=== PATIENT | male | born 1955 | race Caucasian/White ===

== ENCOUNTER 2018-06-29 13:20 | Emergency (ER) | payer OTHER ==
[~2018-06-29] VITALS: Ht 172.1 cm; Wt 74.8 kg
[2018-06-29] MEDS ORDERED: methylPREDNISolone SOD SUCC PF 125 MG/2 ML VIAL. IV ONE (14:00)
[2018-06-29] MEDS ORDERED: cefTRIAXone IV Push 1 GM VIAL. IVP ONE (14:00)
[2018-06-29 14:39] LABS: BASO # 0.1 x10^3/uL (0.0-0.2); BASO % 1 % (0-3); EOS # 0.8 x10^3/uL (0.0-0.7); EOS % 6 % (0-3); HEMOGLOBIN 14.7 g/dL (13.0-17.5); LYMPH # 1.9 x10^3/uL (1.0-4.8); LYMPH % 13 % (24-48); MEAN CORPUSCULAR HEMOGLOBIN 32 pg (25-35); MEAN CORPUSCULAR HGB CONC 34 g/dL (31-37); MEAN CORPUSCULAR VOLUME 92 fL (79-100); MONO # 1.3 x10^3/uL (0.0-1.1); MONO % 9 % (0-9); NEUT # 10.8 x10^3uL (1.8-7.7); NEUT % 72 % (31-73); PLATELET COUNT 314 x10^3/uL (140-400); RED BLOOD COUNT 4.66 x10^6/uL (4.30-5.70)
[2018-06-29 15:00] LABS: CALCIUM 9.6 mg/dL (8.5-10.1); CREATININE 0.8 mg/dL (0.7-1.3); GFR 97.6; POTASSIUM 5.3 mmol/L (3.5-5.1)
[2018-06-29 15:04] VITALS: BP 153/91
[2018-06-29 15:12] LABS: ALBUMIN 3.7 g/dL (3.4-5.0); ALBUMIN/GLOBULIN RATIO 0.9 (1.0-1.7); TOTAL BILIRUBIN 0.4 mg/dL (0.2-1.0); TOTAL PROTEIN 7.9 g/dL (6.4-8.2)
[2018-06-29] MEDS ORDERED: IOHEXOL 300 MG/ML 100ML VIAL. IV ONE (15:45)
[2018-06-29] MEDS ORDERED: CONTRAST GIVEN. MC PRN (15:45)
--- NOTE | 2018-06-29 16:32 | RAD ---
Examination: CT soft tissue neck with IV contrast HISTORY: History of shortness of breath, cough, swollen uvula COMPARISON: None available Technique: Axial CT images of the soft tissue neck were performed with IV contrast. Coronal and sagittal reformats are performed Exposure: One or more of the following individualized dose reduction techniques were utilized for this examination: 1. Automated exposure control 2. Adjustment of the mA and/or kV according to patient size 3. Use of iterative reconstruction technique. Findings: The visualized parotid glands, masticators spaces grossly appears unremarkable. There is mild prominent appearing uvula. No evidence of enlargement of the tonsils identified. The visualized vallecula, perform sinuses grossly appears unremarkable. The visualized thyroid gland grossly appears unremarkable. No radiologically significant cervical lymphadenopathy is identified. Severe lung emphysematous changes. Mild degenerative changes cervical spine. Mild mucosal thickening left maxillary sinus. IMPRESSION: 1. Mild enlarged appearing uvula, nonspecific. No evidence of tonsillar enlargement. 2. Severe lung emphysematous changes. Electronically signed by: Valeriy Obando MD (06/29/2018 4:28 PM) [facility]
[2018-06-29] MEDS ORDERED: METH4TAB2 PO (16:43)
[2018-06-29] MEDS ORDERED: AZIT250T PO (16:43)
--- NOTE | 2018-06-29 16:44 | PHYS DOC ---
Past Medical History Past Medical History: Arthritis, Asthma, GERD, High Cholesterol, Hypertension, Hepatitis, Other Additional Past Medical Histor: cervical neck pain Past Surgical History: Appendectomy, Tonsillectomy, Other Additional Past Surgical Histo: L wrist; Right leg; laproscopic of abd Alcohol Use: None Drug Use: None Adult General Chief Complaint Chief Complaint: OTHER COMPLAINTS HPI HPI Patient is a 63-year-old male who presents with complaint of swelling of his uvula, difficulty swallowing, sore throat and mild shortness of breath. Patient states that symptoms have been present and worsening over the course of the last week. Patient does not believe that he has been running a fever. He denies any nausea or vomiting. Patient indicates that there are no alleviating factors. Review of Systems Review of Systems Constitutional: Denies fever or chills [] HENT: Positive sore throat [] Respiratory: [place] of dry cough and shortness of breath [] Cardiovascular: No additional information not addressed in HPI [] Integument: Denies rash or skin lesions [] Neurologic: Denies headache, focal weakness or sensory changes [] All other systems were reviewed and found to be within normal limits, except as documented in this note. Current Medications Current Medications Current Medications Medications (Trade) Dose Ordered Sig/Jaime Start Time Stop Time Status Last Admin Dose Admin Ceftriaxone Sodium (Rocephin) 1 gm 1X ONCE 06/29/18 14:00 06/29/18 14:01 DC 06/29/18 14:56 1 GM Info (CONTRAST GIVEN -- Rx MONITORING) 1 each PRN DAILY PRN 06/29/18 15:45 06/29/18 16:55 DC Iohexol (Omnipaque 300 Mg/ml) 70 ml 1X ONCE 06/29/18 15:45 06/29/18 15:46 DC 06/29/18 15:41 70 ML Methylprednisolone Sodium Succinate (SOLU-Medrol 125MG VIAL) 125 mg 1X ONCE 06/29/18 14:00 06/29/18 14:01 DC 06/29/18 14:56 125 MG Allergies Allergies Allergies Coded Allergies Type Severity Reaction Last Updated Verified No Known Drug Allergies 06/29/18 No Physical Exam Physical Exam Constitutional: Well developed, well nourished, no acute distress, non-toxic appearance. [] HENT: Normocephalic, atraumatic, bilateral external ears normal, oropharynx moist, throat reveals pharyngeal erythema with tonsillar enlargement. There is swelling noted to the uvula but airway is widely patent. [] Eyes: PERRLA, EOMI, conjunctiva normal, no discharge. [] Neck: Normal range of motion, no tenderness, supple with anterior cervical lymphadenopathy. [] Cardiovascular: Regular rate and rhythm [] Lungs & Thorax: Bilateral breath sounds clear to auscultation [] Abdomen: Bowel sounds normal, soft, no tenderness. [] Skin: Warm, dry, no erythema, no rash. [] Extremities: No tenderness, no cyanosis, no clubbing, ROM intact, no edema. [] Neurologic: Alert and oriented X 3, no focal deficits noted. [] Current Patient Data Vital Signs Vital Signs Date Time Temp Pulse Resp B/P (MAP) Pulse Ox O2 Delivery O2 Flow Rate FiO2 06/29/18 15:04 90 153/91 (111) 93 Room Air 06/29/18 13:32 97.5 20 97.5 Lab Values Laboratory Tests Test 06/29/18 14:25 White Blood Count 15.0 x10^3/uL (4.0-11.0) H Red Blood Count 4.66 x10^6/uL (4.30-5.70) Hemoglobin 14.7 g/dL (13.0-17.5) Hematocrit 43.0 % (39.0-53.0) Mean Corpuscular Volume 92 fL (79-100) Mean Corpuscular Hemoglobin 32 pg (25-35) Mean Corpuscular Hemoglobin Concent 34 g/dL (31-37) Red Cell Distribution Width 13.0 % (11.5-14.5) Platelet Count 314 x10^3/uL (140-400) Neutrophils (%) (Auto) 72 % (31-73) Lymphocytes (%) (Auto) 13 % (24-48) L Monocytes (%) (Auto) 9 % (0-9) Eosinophils (%) (Auto) 6 % (0-3) H Basophils (%) (Auto) 1 % (0-3) Neutrophils # (Auto) 10.8 x10^3uL (1.8-7.7) H Lymphocytes # (Auto) 1.9 x10^3/uL (1.0-4.8) Monocytes # (Auto) 1.3 x10^3/uL (0.0-1.1) H Eosinophils # (Auto) 0.8 x10^3/uL (0.0-0.7) H Basophils # (Auto) 0.1 x10^3/uL (0.0-0.2) Sodium Level 138 mmol/L (136-145) Potassium Level 5.3 mmol/L (3.5-5.1) H Chloride Level 103 mmol/L (98-107) Carbon Dioxide Level 28 mmol/L (21-32) Anion Gap 7 (6-14) Blood Urea Nitrogen 15 mg/dL (8-26) Creatinine 0.8 mg/dL (0.7-1.3) Estimated GFR (Cockcroft-Gault) 97.6 BUN/Creatinine Ratio 19 (6-20) Glucose Level 81 mg/dL (70-99) Calcium Level 9.6 mg/dL (8.5-10.1) Total Bilirubin 0.4 mg/dL (0.2-1.0) Aspartate Amino Transferase (AST) 31 U/L (15-37) Alanine Aminotransferase (ALT) 26 U/L (16-63) Alkaline Phosphatase 74 U/L (46-116) Total Protein 7.9 g/dL (6.4-8.2) Albumin 3.7 g/dL (3.4-5.0) Albumin/Globulin Ratio 0.9 (1.0-1.7) L Laboratory Tests 06/29/18 14:25 Laboratory Tests 06/29/18 14:25 EKG EKG [] Radiology/Procedures Radiology/Procedures [] Impressions: Examination: CT soft tissue neck with IV contrast HISTORY: History of shortness of breath, cough, swollen uvula COMPARISON: None available Technique: Axial CT images of the soft tissue neck were performed with IV contrast. Coronal and sagittal reformats are performed Exposure: One or more of the following individualized dose reduction techniques were utilized for this examination: 1. Automated exposure control 2. Adjustment of the mA and/or kV according to patient size 3. Use of iterative reconstruction technique. Findings: The visualized parotid glands, masticators spaces grossly appears unremarkable. There is mild prominent appearing uvula. No evidence of enlargement of the tonsils identified. The visualized vallecula, perform sinuses grossly appears unremarkable. The visualized thyroid gland grossly appears unremarkable. No radiologically significant cervical lymphadenopathy is identified. Severe lung emphysematous changes. Mild degenerative changes cervical spine. Mild mucosal thickening left maxillary sinus. IMPRESSION: 1. Mild enlarged appearing uvula, nonspecific. No evidence of tonsillar enlargement. 2. Severe lung emphysematous changes. Electronically signed by: Valeriy Obando MD (06/29/2018 4:28 PM) [id number] Course & Med Decision Making Course & Med Decision Making Pertinent Labs and Imaging studies reviewed. (See chart for details) [] Dragon Disclaimer Dragon Disclaimer This electronic medical record was generated, in whole or in part, using a voice recognition dictation system. Departure Departure Impression: Primary Impression: Strep throat Additional Impression: Uvular swelling Disposition: 01 HOME, SELF-CARE Condition: STABLE Referrals: NO PCP (PCP) Patient Instructions: Strep Throat Scripts Azithromycin (ZITHROMAX) 250 Mg Tablet 1 PKG PO UD, #6 TAB Prov: TERRY MORELAND Jr. DO 06/29/18 Methylprednisolone (MEDROL) 4 Mg Tab.ds.pk 1 PKG PO UD, #1 PKG Prov: TERRY MORELAND Jr. DO 06/29/18 Problem Qualifiers TERRY MORELAND Jr. DO Jun 29, 2018 16:43
--- NOTE | 2018-06-30 08:06 | EKG ---
[facility] [address] [place] [address] Test Date: 2018-06-29 Test Time: 13:34:14 Pat Name: ANA BHATTI Department: Room: Gender: Book Critic: [place] : 1955 Requested By: TERRY MORELAND Order Number: [id number] Reading MD: Loki Bai Measurements Intervals [place] Rate: 99 P: 45 MO: 156 QRS: -39 QRSD: 76 T: 59 QT: 334 QTc: 433 Interpretive Statements SINUS RHYTHM ABNORMAL LEFT AXIS DEVIATION LEFT ANTERIOR FASCICULAR BLOCK Electronically Signed On 07-05-2018 9:24:04 HOT DIPPER by Loki Bai
== END 2018-06-29 16:55 | disposition home or self-care (01) ==
LOC: EEVIPCON 13:20 → ER 13:20
DX: J02.0 Streptococcal pharyngitis (principal); B95.5 Unspecified streptococcus as the cause of diseases classified elsewhere; R22.0 Localized swelling, mass and lump, head; K21.9 Gastro-esophageal reflux disease without esophagitis; E78.00 Pure hypercholesterolemia, unspecified; I10 Essential (primary) hypertension; M19.90 Unspecified osteoarthritis, unspecified site; J45.909 Unspecified asthma, uncomplicated; Z90.89 Acquired absence of other organs
CPT/HCPCS: 36415; 70491; 80053; 85025; 87880; 93005; 96374; 96375; 99284; J0696; J2930; Q9967